=== PATIENT | male | born 1975 | race Two or more races ===

== ENCOUNTER 2024-05-16 12:55 | Outpatient (CLI) | payer OTHER, SELFPAY ==
--- NOTE | 2024-05-16 13:00 | MR_ITS ---
[address] [address] Phone:?[phone] Fax:?[phone] Referring Physician Information: Ernesto Erickson [address] [facility] [address] Phone:?[phone] Fax:?[phone] Patient:Janice Lawler D.O.B:?1975 Sex:?Male Phone:?[phone] [facility] MRN:?[id number] Exam Date:?05/16/2024 EXAM: MRI of the LEFT SHOULDER, without contrast CLINICAL: Left shoulder pain. COMPARISONS: X-rays dated 05/02/2024. TECHNICAL: Multiplanar multisequence MRI of the left shoulder was obtained. SEDATION: None. CONTRAST: None. FINDINGS: Rotator cuff: Supraspinatus/Infraspinatus: There is full-thickness tearing of the majority of the distal supraspinatus tendon with retraction of torn tendon fibers approximately 12 mm as seen on coronal series 5 images 9-11. There is moderate tendinosis of the distal infraspinatus tendon with moderate focal partial articular surface tearing involving the junction of the posterior supraspinatus and anterior infraspinatus tendons on coronal series 5 image 12. Minimal partial interstitial tearing of the posterior infraspinatus tendon on coronal series 5 image 18. No significant fatty atrophy of the muscle bellies. Teres minor: No tendinosis, tear or atrophy. Subscapularis: There is full-thickness tearing throughout the distal tendon with retraction of torn tendon fibers to the level of the glenohumeral joint/glenoid. Relatively mild fatty atrophy of the muscle belly at this time. Bursae: Subacromial-subdeltoid: Mild bursal edema. Subcoracoid: No significant bursal fluid. Coracoacromial arch: Acromion morphology: Type II. No os acromiale. Acromiohumeral space: Within normal limits. Coracohumeral space: Within normal limits. Biceps tendon, long head: Nonvisualized consistent with sequelae of full- thickness retracted rupture. Glenohumeral joint: Small volume of glenohumeral joint fluid is present with synovitis. Articular cartilage: No significant chondral loss. Capsule: No convincing evidence of capsular thickening or injury. Labrum: There is tearing of the superior labrum with ill-defined degenerative changes also seen to involve the anterior and anteroinferior labrum. No perilabral cyst identified. Bones: No suspicious marrow signal alteration, fracture or dislocation. Acromioclavicular joint: Advanced changes of arthrosis. No AC joint injury/widening. IMPRESSION: 1. Full-thickness tearing of the majority of the distal supraspinatus tendon with retraction of torn tendon fibers by approximately 1.2 cm. Moderate tendinosis of the distal infraspinatus tendon with moderate focal partial articular surface tearing of the junction of the posterior distal supraspinatus and anterior distal infraspinatus tendons. Minimal partial interstitial tearing of the posterior infraspinatus tendon. 2. Full-thickness tearing throughout the distal subscapularis tendon with retraction of torn tendon fibers to the level of the glenohumeral joint/glenoid. Mild fatty atrophy of the subscapularis muscle. 3. Full-thickness retracted rupture of the long head biceps tendon. 4. Tearing of the superior labrum. Ill-defined degenerative changes are also seen to involve the anterior and anteroinferior labrum. 5. Advanced AC joint arthrosis. [facility] Electronically signed on 05/17/2024 7:52:00 AM by Tre Kidd D.O.
== END 2024-05-16 12:56 | disposition home or self-care (01) ==
LOC: MRI 12:57
PROVIDERS: Visit Provider Physician Assistant Surgical
DX: M25.512 Pain in left shoulder (principal); M75.102 Unspecified rotator cuff tear or rupture of left shoulder, not specified as traumatic; S46.812A Strain of other muscles, fascia and tendons at shoulder and upper arm level, left arm, initial encounter; S43.432A Superior glenoid labrum lesion of left shoulder, initial encounter; M19.012 Primary osteoarthritis, left shoulder
CPT/HCPCS: 73221; T1013

== ENCOUNTER 2024-07-09 15:44 | Outpatient (CLI) | payer OTHER, SELFPAY | END 2024-07-09 15:45 | disposition home or self-care (01) | LOC: NFLDREF 15:45 | PROVIDERS: Visit Provider Family Medicine | DX: Z01.818 Encounter for other preprocedural examination (principal) | CPT/HCPCS: 80048 ==

== ENCOUNTER 2024-08-06 08:16 | Outpatient (CLI) | payer OTHER, SELFPAY | END 2024-08-06 08:17 | disposition home or self-care (01) | LOC: NFLDREF 08:17 | PROVIDERS: Visit Provider Family Medicine | DX: Z01.818 Encounter for other preprocedural examination (principal) | CPT/HCPCS: 80048 ==

== ENCOUNTER 2025-02-28 10:30 | Outpatient (RCR) | payer OTHER, SELFPAY | END 2025-03-19 14:42 | disposition home or self-care (01) | PROVIDERS: Visit Provider Physician Assistant | DX: Z48.89 Encounter for other specified surgical aftercare (principal); M25.512 Pain in left shoulder; Z51.89 Encounter for other specified aftercare | CPT/HCPCS: 97110; 97140; 97162; 97170; 97545; 97546 ==